=== PATIENT | female | born 1975 | race Caucasian/White ===

== ENCOUNTER 2017-09-02 17:58 | Emergency (ER) | payer MEDICAID, SELFPAY ==
[2017-09-02 18:02] VITALS: BP 157/124; PULSE 107; RESP 20; TEMP 37.3; O2SAT 98; BMI 18.4
[2017-09-02 18:37] VITALS: BP 142/80; PULSE 96; RESP 16; O2SAT 97
[2017-09-02] MEDS: Acetaminophen 500 MG Tablet 1000 MG PO (19:03)
[2017-09-02 20:03] LABS: Absolute Lymphocyte Count 3.22 X10^3/ul (0.83-4.51); Basophil# 0.01 X10^3/uL; Basophil% 0.1 % (0-1); Eosinophil# 0.13 X10^3/uL; Eosinophils% 1.3 % (0-5); Hematocrit 45.4 % (37-47); Hemoglobin 15.3 g/dl (12.0-15.0); Lymphocyte # 3.22 X10^3/ul (4.0); Lymphocyte % 32.9 % (19-41); Mean Corp Hgb Conc 33.7 g/gl (32-36); Mean Corpuscular Hgb 30.1 pg (27.0-32.0); Mean Corpuscular Volume 89.2 fL (81-99); Monocyte# 0.47 X10^3/uL; Monocyte% 4.8 % (0-10); Neutrophil # 5.95 X10^3/uL (2.7-7.7); Neutrophil % 60.7 % (47-70); POSITIVE COUNT NO; POSITIVE DIFFERENTIAL NO; POSITIVE MORPHOLOGY NO; Platelet Count 203 K/mm3 (150-450); RBC Distribution Width CV 13.3 % (11.6-14.6); RBC Distribution Width SD 43.3 fl (35.1-43.9); Red Blood Count 5.09 M/mm3 (4.2-5.4); White Blood Count 9.8 K/mm3 (4.4-11.0)
[2017-09-02 20:12] LABS: Anion Gap 6 (5-15); BUN 17 mg/dL (7-18); BUN/Creat Ratio 20.8 RATIO (10-20); Chloride 110 mmol/L (98-107); Creatinine, Serum 0.82 mg/dL (0.55-1.02); EST Glomerular Filtration Rate 81 mL/min (>60); Est Glom Filt Rate - Afr Amer 99 mL/min (>60); Estimated Creatinine Clearance 68.71 ml/min; Glucose 73 mg/dL (74-106); Potassium 3.4 mmol/L (3.5-5.1); Sodium Level 140 mmol/L (136-145)
[2017-09-02 20:16] LABS: Bacteria 0 SEEN /hpf (None Seen); Mucous, Urine 0 SEEN /hpf (<or=2+)
[2017-09-02 20:36] LABS: Color, Urine Yellow (Yellow); Glucose, Dipstick Normal (Normal); Ketone-Dipstick Negative (Negative); Leukocyte Esterase-Dipstick 25 /ul (Negative); Nitrite-Dipstick Negative (Negative); Occult Blood-Urine 10 /ul (Negative); Protein-Dipstick Negative (Negative); Specific Gravity, Urine 1.015 (1.002-1.030); Urine Bilirubin Dipstick Negative (Negative); Urine Clarity Sl. Cloudy (Clear); Urine Urobilinogen Normal (Normal)
[2017-09-02 21:02] LABS: Internal QC Validated? YES +Cl - CLEAR BKGD; Pregnancy, Urine Negative Negative
[2017-09-02 21:05] LABS: Red Blood Cells-Urine 0-5 SEEN /hpf (0-5); Squamous Epithelial Cells - UA 0-5 SEEN /hpf (5-10); White Blood Cells 0-5 SEEN /hpf (0-5)
--- NOTE | 2017-09-02 21:38 | ED.DCSUM_ITS ---
- ER Visit Summary Date of Service: 09/02/17 Chief Complaint: 42-year-old female who was diagnosed with cervical cancer 15 years ago presents with pelvic pain and fever after a punch biopsy 9 days ago. She states that she was diagnosed a long time ago with cervical cancer but did not follow-up because she was using IV heroin and other drugs heavily at the time. She states that she has been addicted to heroin for essentially the past 15 years and did not want to follow-up. She has now been clean for the past 6- 7 months and has been going to a Suboxone clinic. She is currently on Suboxone and she has been getting her life in order and seeking medical treatment for her cervical cancer. She has had a total of 3 biopsies over the past month, an MRI, and she is scheduled for colonoscopy and cystoscopy to evaluate for spread of the cancer. She has been preparing for chemotherapy and possibly radiation. She said that she has had pain in her pelvic region ever since her last punch biopsy. She was initially spotting but this has resolved. She denies any localized pain. No back pain or urinary symptoms. She believes that she had a fever at home today as well but she was unable to check it. She has no cough, respiratory complaints, or other symptoms. She states that she has not used IV heroin in the past 6 months and she denies any chest pain, night sweats, or weight loss. Physical Examination: Vitals are within normal limits. She is not in distress. Neck is supple. Heart tones are regular and without murmur. Lungs are clear bilaterally. Abdomen is soft and nontender. No flank tenderness. No rash anywhere. No sign of skin infection anywhere. No splinter hemorrhages or other signs of endocarditis. Test Results: BC and BMP are normal here except for glucose of 79. She was able to eat here without difficulty. She has no abdominal pain, just suprapubic pressure. Urinalysis is unremarkable was sent for culture. She has no splinter hemorrhages, heart murmur, or other signs of endocarditis to explain her fever and she has not used for at least 6 months from what she tells me. I think endocarditis is unlikely. Emergency Department Course and Treatment: I was set up to perform a pelvic examination to evaluate her punch biopsy site but her family came to me in the hallway and said that she is going to elope from the emergency department and does not want to wait. I went back in and spoke with her and told her that her laboratory studies are unremarkable so far but that we should evaluate her biopsy site. She states that she is unable to wait because she needs to get home to smoke a cigarette. She is getting anxiety from waiting here she tells me. She did allow me to repeat an abdominal examination and her abdomen is still soft and nontender. She does not want a pelvic examination. She states that she already called her [employer] doctor and she is seeing her on Tuesday morning. I think this is reasonable given her well appearance. She will return if she is any worse over the weekend. Asked for a prescription for Flexeril since she is unable to take opiates and NSAIDs. She states that this has worked well for her in the past. Treatment Plan: See her [employer] doctor on Tuesday Disposition: Home stable condition Impression: Initial encounter pelvic pain after punch biopsy, febrile illness This note was generated with [employer] dictation software. It may contain incorrect words, spelling, and punctuation that were not noted in review of the chart prior to signing ED Disposition - Plan for ED Patient: Chief Complaint: Other, Pain/Inj Diagnosis: Pelvic pain Instructions: ED Pelvic Pain [facility] Prescriptions: Cyclobenzaprine [Flexeril] 10 mg PO TID PRN #20 tablet PRN Reason: Muscle Spasm Referrals: Shilpa Valiente MD [Primary Care Provider] - As soon as possible
[2017-09-02 22:01] VITALS: BP 112/94; PULSE 87; RESP 16; O2SAT 98
== END 2017-09-02 22:02 | disposition home or self-care (01) ==
PROVIDERS: Emergency Provider Emergency Medicine; Family Provider Obstetrics & Gynecology Gynecology; PCP Obstetrics & Gynecology Gynecology
DX: R10.2 Pelvic and perineal pain (principal); R50.9 Fever, unspecified; Z72.0 Tobacco use; Z85.41 Personal history of malignant neoplasm of cervix uteri
CPT/HCPCS: 36415; 80048; 81001; 81025; 85025; 87086; 99281; A4216

== ENCOUNTER 2018-02-14 19:37 | Emergency (ER) | payer MEDICAID, SELFPAY ==
[2018-02-14 19:37] VITALS: BP 136/78; PULSE 96; RESP 16; TEMP 36.6; O2SAT 99; BMI 22.4
--- NOTE | 2018-02-14 19:42 | RAD_ITS ---
STUDY: X-RAY - RIGHT SHOULDER REASON FOR EXAM: Female, 42 years old. Pain TECHNIQUE: 4 view(s) of the shoulder. COMPARISON: None. FINDINGS: Normal glenohumeral articulation. There is hypertrophic osteoarthrosis of the acromioclavicular joint with inferior osseous spur formation. Normal acromion. Normal humeral head and visualized proximal humerus. The soft tissue structures are unremarkable. There is no demonstrated fracture. Normal visualized pulmonary apex. RAD/Shoulder min 2 Views IMPRESSION: No fracture. Acromioclavicular spurring. Electronically Signed: Mack Roberto MD at 20:17 EDT , Service support ,
--- NOTE | 2018-02-14 20:33 | ED.DCSUM_ITS ---
- ER Visit Summary Date of Service: 02/14/18 Chief Complaint: Right shoulder pain History of Present Illness: The patient is a 42 F with right shoulder pain for the past 3 weeks. She denies known injury, but does states she has been lifting her grandchildren. She is right-hand dominant. Physical Examination: Vital signs unremarkable. Patient sitting upright in bed no acute distress. Head neck examination unremarkable. Heart is regular rate and rhythm. Lung sounds clear. Abdomen is soft nontender. Right upper extremity examination does reveal tenderness along the anterior right shoulder over the lateral pectoralis muscles in the AC joint. She has decreased range of motion secondary to pain. There is normal sensation with strong distal pulses. Test Results: Right shoulder x-rays were obtained per nursing protocol. No evidence of fracture or dislocation. AC spurring is noted. Emergency Department Course and Treatment: Patient is given Naprosyn in a sling. She was instructed to come out of the sling 3 times a day to exercise her right shoulder to keep her range of motion. She is referred to orthopedics for follow-up if not improving. Treatment Plan: [] Disposition: Discharge Impression: Shoulder sprain This note was generated with [employer] dictation software. It may contain incorrect words, spelling, and punctuation that were not noted in review of the chart prior to signing ED Disposition - Plan for ED Patient: Disposition: Home or Assisted Living Chief Complaint: Upper Extremity Injury Instructions: ED Sprain Shoulder Prescriptions: Naproxen [Naprosyn] 500 mg PO BID PRN PRN #20 tablet PRN Reason: Pain Referrals: Romario Perez MD [STAFF PHYSICIAN] - As Needed
[2018-02-14 20:53] VITALS: BP 117/96; PULSE 87; RESP 16; O2SAT 96
[2018-02-14] MEDS: Naproxen 500 MG Tablet PO (20:57)
== END 2018-02-14 21:02 | disposition home or self-care (01) ==
LOC: ED 20:37
PROVIDERS: Emergency Provider Emergency Medicine
DX: S43.401A Unspecified sprain of right shoulder joint, initial encounter (principal); X58.XXXA Exposure to other specified factors, initial encounter; Y93.89 Activity, other specified; Y92.89 Other specified places as the place of occurrence of the external cause; Y99.9 Unspecified external cause status; Z72.0 Tobacco use; Z85.41 Personal history of malignant neoplasm of cervix uteri
CPT/HCPCS: 73030; 99283

== ENCOUNTER 2018-10-21 16:04 | Emergency (ER) | payer MEDICAID, SELFPAY ==
[2018-10-21 16:05] VITALS: BP 128/90; PULSE 102; RESP 18; TEMP 36.3; O2SAT 100; BMI 21.9
--- NOTE | 2018-10-21 16:34 | EKG12_ITS ---
Test Reason : ISELA BLANCHARD Confirmed By:TRISH SPARROW MD
[2018-10-21 16:48] VITALS: O2SAT 100
--- NOTE | 2018-10-21 17:52 | ED.VIS.GEN ---
History of Present Illness <AbelStef - Last Filed: 10/21/18 19:21> Informant: Patient Onset: Today Context: Sudden Onset Timing: Continuous Quality: sharp Location: left anterior chest radiating to back/jaw Current Severity: Moderate Maximum Severity: Severe Worsened by: nothing Relieved by: nothing Associated Symptoms: back pain, nausea Narrative: 43-year-old female with a past medical history of hyperlipidemia and heroin abuse presents to the emergency department with left sided chest pain. This began suddenly 1 hour prior to arrival. Patient was at the grocery store holding her niece and then had a sudden onset of pain. It radiates to her back and on the right side of her jaw. She is not lightheaded or dizzy denies shortness of breath or diaphoresis but is nauseated. No vomiting. No numbness or tingling. No headache. No neck pain. Denies history of similar symptoms. Denies any recent drug abuse. Denies abdominal pain. Denies any recent travel or surgery, history of DVT or PE, or use of oral control pills. Denies leg pain or swelling. She is a daily smoker. Family history of heart disease at a young age, less than 50. Prior similar symptoms: Yes Recent Illness/Hospitalization: No <Grzegorz Gonsalez - Last Filed: 10/22/18 10:23> Chief Complaint: Back Past Medical History <AbelStef - Last Filed: 10/21/18 19:21> Prior records reviewed: Yes Past Medical History: - - IVDA, hyperlipidemia Surgical History: no surgical history Smoking Status: Current every day smoker - Family History Maternal Family History: Reports: No pertinent history <Grzegorz Gonsalez - Last Filed: 10/22/18 10:23> - Allergies and Home Meds Allergies/Adverse Reactions: Allergies Penicillins Allergy (Verified 02/14/18 19:39) Swelling rofecoxib [From Vioxx] Allergy (Verified 02/14/18 19:39) Rash Primary Care Physician: Ifeanyi Vasquez MD [Primary Care Provider] - As soon as possible Review of Systems All systems negative except as indicated General: Denies: Chills, Fever Cardiovascular: Reports: Chest pain Respiratory: Denies: Dyspnea Gastrointestinal: Reports: Nausea. Denies: Abdominal pain, Vomiting <Grzegorz Gonsalez - Last Filed: 10/22/18 10:23> Physical Exam Vital Signs/Narrative: Vital Signs Temp Pulse Resp BP Pulse Ox 10/21/18 18:43 72 12 116/82 H 96 10/21/18 16:48 100 10/21/18 16:05 97.4 F L 102 H 18 128/90 H 100 <Setf Roman - Last Filed: 10/21/18 19:21> Vital Signs/Narrative: Vital Signs Temp Pulse Resp BP Pulse Ox 10/21/18 16:48 100 10/21/18 16:05 97.4 F L 102 H 18 128/90 H 100 General: Well nourished, Well developed, No Acute Distress Head: Normocephalic, Atraumatic Eyes: Perrl, EOMI ENT: Moist mucous membranes Neck: Supple, Nontender Cardiovascular: Regular rate, Regular rhythm, No murmurs Respiratory: No distress, CTA bilaterally, Chest nontender Abdomen: Soft, Nontender, Nondistended, Normal bowel sounds, No masses Back: Nontender, Normal Inspection Extremities: Nontender, No edema. Negative for: Calf Tenderness Skin: Normal color, No rash Neurological: Alert, Oriented x3 Psychological: Normal affect <Grzegorz Gonsalez - Last Filed: 10/22/18 10:23> ED Disposition <Stef Roman - Last Filed: 10/21/18 19:21> <Grzegorz Gonsalez - Last Filed: 10/22/18 10:23> - Plan for ED Patient: Disposition: Against Medical Advice Diagnosis: Chest pain Instructions: ED Chest Pain Atypical Unkn Cause Referrals: Ifeanyi Vasquez MD [Primary Care Provider] - As soon as possible Additional Instructions: Take 1 baby aspirin per day. Follow-up with your primary care physician soon as possible you need further evaluation in this chest pain. All your tests were normal today but I am concerned he can still be possibly underlying cardiac disease. If you feel worse or change your mind please return the emergency department to be admitted. Follow-up with your primary care physician to set up outpatient stress testing and possibly an echocardiogram to evaluate your heart valves.
--- NOTE | 2018-10-21 18:12 | RAD_ITS ---
STUDY: X-RAY CHEST REASON FOR EXAM: Female, 43 years old. Chest pain, squeezing sensation TECHNIQUE: PA and lateral views of the chest. COMPARISON: None. FINDINGS: The lungs are clear and expanded. There is pleural fibrotic thickening of the pulmonary lung apices. Normal size heart. Normal mediastinum and melania. Normal visualized pulmonary arteries. Normal visualized aortic arch and descending thoracic aorta. Normal visualized thoracic spine. Normal visualized ribs, clavicles, and shoulders. There is no demonstrated abnormality of the visualized soft tissue structures of the upper abdomen. RAD/Chest PA and Lateral IMPRESSION: No acute cardiopulmonary process. Electronically Signed: Luis Armando Lee MD at 18:34 EDT , Service support ,
[2018-10-21 18:32] LABS: Absolute Lymphocyte Count 2.07 X10^3/ul (0.83-4.51); Absolute Neutrophil Count 4.6 X10^3/uL (2.0-7.7); Basophil# 0.02 X10^3/uL; Basophil% 0.3 % (0-1); Eosinophil# 0.22 X10^3/uL; Hematocrit 39.4 % (37-47); Hemoglobin 13.1 g/dl (12.0-15.0); Lymphocyte # 2.07 X10^3/ul (4.0); Lymphocyte % 28.3 % (19-41); Mean Corp Hgb Conc 33.2 g/gl (32-36); Mean Corpuscular Hgb 29.9 pg (27.0-32.0); Mean Platelet Vol. 9.9 fl (6.2-12.0); Monocyte# 0.39 X10^3/uL; Monocyte% 5.3 % (0-10); Neutrophil # 4.61 X10^3/uL (2.7-7.7); Platelet Count 261 K/mm3 (150-450); RBC Distribution Width CV 13.3 % (11.6-14.6); Red Blood Count 4.38 M/mm3 (4.2-5.4); White Blood Count 7.3 K/mm3 (4.4-11.0)
[2018-10-21 18:42] LABS: D-Dimer Quantitative (DVT/PE) 0.31 FEU/ug/m (0.27-0.49); POSITIVE COUNT NO; POSITIVE DIFFERENTIAL NO; POSITIVE MORPHOLOGY NO
[2018-10-21 18:43] VITALS: BP 116/82; PULSE 72; RESP 12; O2SAT 96
[2018-10-21 18:49] LABS: Anion Gap 4 (5-15); BUN 13 mg/dL (7-18); BUN/Creat Ratio 18.6 RATIO (10-20); Calcium,Total 8.6 mg/dL (8.5-10.1); Chloride 106 mmol/L (98-107); EST Glomerular Filtration Rate 97 mL/min (>60); Est Glom Filt Rate - Afr Amer 117 mL/min (>60); Estimated Creatinine Clearance 89.48 ml/min; Glucose 105 mg/dL (74-106); Potassium 4.1 mmol/L (3.5-5.1); Sodium Level 139 mmol/L (136-145)
--- NOTE | 2018-10-21 19:18 | HP.PCM_ITS ---
History of Present Illness The patient is a 43 year old F [] Past Medical History Past Medical History (Chronic Problems): Chronic Problems Cervical cancer (Chronic) Tobacco dependence (Chronic) Heroin dependence (Chronic) Allergies Penicillins Allergy (Verified 02/14/18 19:39) Swelling rofecoxib [From Vioxx] Allergy (Verified 02/14/18 19:39) Rash Home Medications: Ambulatory Orders Medication Instructions Recorded Atorvastatin Calcium [Lipitor] 40 mg PO DAILY 09/02/17 Buprenorphine HCl/Naloxone HCl 4 each PO BID 09/02/17 [Suboxone 8 mg-2 mg Sl Film] Mirtazapine 30 mg PO DAILY 10/21/18 Surgical History: no surgical history Smoking Status: Current every day smoker - *Family History Maternal History Items: No pertinent history - Physical Exam Vital Signs Temp Pulse Resp BP Pulse Ox 97.4 F L 72 12 116/82 H 96 10/21/18 16:05 10/21/18 18:43 10/21/18 18:43 10/21/18 18:43 10/21/18 18:43 Oxygen Delivery Method Room Air Weight: 58.1 kg Body Mass Index (BMI) 21.9 Laboratory Tests Past 24 Hrs 10/21/18 10/21/18 10/21/18 18:08 18:08 18:08 WBC 7.3 RBC 4.38 Hgb 13.1 Hct 39.4 MCV 90.0 MCH 29.9 MCHC 33.2 RDW 13.3 RDW Differential 44.0 H Plt Count 261 MPV 9.9 Immature Gran % (Auto) 0.100 Neut % (Auto) 63.0 Lymph % (Auto) 28.3 Forrest % (Auto) 5.3 Eos % (Auto) 3.0 Baso % (Auto) 0.3 Absolute Neuts (auto) 4.6 Absolute Lymphs (auto) 2.07 Total Counted Not Reportable D-Dimer Quant (PE/DVT) 0.31 Sodium 139 Potassium 4.1 Chloride 106 Carbon Dioxide 29.0 Anion Gap 4 L BUN 13 Creatinine 0.70 Estim Creat Clear Calc 89.48 Est GFR (MDRD) Af Amer 117 Est GFR (MDRD) Non-Af 97 BUN/Creatinine Ratio 18.6 Glucose 105 Calcium 8.6 Troponin I < 0.015 Assessment/Plan All Active Problems Acute opioid withdrawal (Acute)
--- NOTE | 2018-10-21 19:42 | ED.VISSUMM ---
- ER Visit Summary Date of Service: 10/21/18 Chief Complaint: [] History of Present Illness: The patient is a 43 F [] Physical Examination: [] Test Results: [] Emergency Department Course and Treatment: Patient's cardiac work-up was negative including a normal CBC and BMP. Negative troponin. Negative d-dimer. Chest x-ray showed normal cardiac silhouette mediastinum. No signs of dissection. EKG was a sinus rhythm with no acute signs of UT or ischemia. Repeat exam patient was feeling better. I discussed with her being admitted. Initially she seemed comfortable with that plan. My concern was her history and her brothers history of having cardiac stents in his early 40s. Also she has a history of IV drug abuse clinically I do not think this is endocarditis but that something could be evaluated also while in the hospital. Treatment Plan: The hospitalist came down evaluate the patient. Explained to her that stress test would not be until Tuesday but he was more than willing to admit her. She states that she has animals at home and could not stay that long. She is refusing admission. And will sign out AMA. Disposition: Planned admission but patient refused and signing out AMA. I specifically discussed this with the patient myself. She knows my concerns. Knows to return if she feels worse or wants to be admitted. She understands the risk of a heart attack, sudden cardiac or chronic vegetative state. Impression: Acute chest pain uncertain etiology Signing out AGAINST MEDICAL ADVICE This note was generated with [employer] dictation software. It may contain incorrect words, spelling, and punctuation that were not noted in review of the chart prior to signing ED Disposition - Plan for ED Patient: Referrals: Ifeanyi Vasquez MD [Primary Care Provider] -
--- NOTE | 2018-10-21 19:45 | ED.DCSUM_ITS ---
- ER Visit Summary Date of Service: 10/21/18 Chief Complaint: [] History of Present Illness: The patient is a 43 F [] Physical Examination: [] Test Results: [] Emergency Department Course and Treatment: Patient's cardiac work-up was negative including a normal CBC and BMP. Negative troponin. Negative d-dimer. Chest x-ray showed normal cardiac silhouette mediastinum. No signs of dissection. EKG was a sinus rhythm with no acute signs of WI or ischemia. Repeat exam patient was feeling better. I discussed with her being admitted. Initially she seemed comfortable with that plan. My concern was her history and her brothers history of having cardiac stents in his early 40s. Also she has a history of IV drug abuse clinically I do not think this is endocarditis but that something could be evaluated also while in the hospital. Treatment Plan: The hospitalist came down evaluate the patient. Explained to her that stress test would not be until Tuesday but he was more than willing to admit her. She states that she has animals at home and could not stay that long. She is refusing admission. And will sign out AMA. Disposition: Planned admission but patient refused and signing out AMA. I specifically discussed this with the patient myself. She knows my concerns. Knows to return if she feels worse or wants to be admitted. She understands the risk of a heart attack, sudden cardiac or chronic vegetative state. Impression: Acute chest pain uncertain etiology Signing out AGAINST MEDICAL ADVICE This note was generated with [employer] dictation software. It may contain incorrect words, spelling, and punctuation that were not noted in review of the chart prior to signing ED Disposition - Plan for ED Patient: Referrals: Ifeanyi Vasquez MD [Primary Care Provider] -
--- NOTE | 2018-10-21 19:46 | ED.DEP ---
ED Disposition - Plan for ED Patient: Disposition: Home or Assisted Living Instructions: ED Chest Pain Atypical Unkn Cause Referrals: Ifeanyi Vasquez MD [Primary Care Provider] - As soon as possible Additional Instructions: Take 1 baby aspirin per day. Follow-up with your primary care physician soon as possible you need further evaluation in this chest pain. All your tests were normal today but I am concerned he can still be possibly underlying cardiac disease. If you feel worse or change your mind please return the emergency department to be admitted. Follow-up with your primary care physician to set up outpatient stress testing and possibly an echocardiogram to evaluate your heart valves.
[2018-10-21 19:59] VITALS: BP 121/87; PULSE 78; RESP 16; O2SAT 96
== END 2018-10-21 20:00 | disposition left against medical advice (07) ==
PROVIDERS: Physician Assistant Medical; Emergency Provider Emergency Medicine; Family Provider Internal Medicine; PCP Internal Medicine
DX: R07.9 Chest pain, unspecified (principal); M54.9 Dorsalgia, unspecified; R11.0 Nausea; E78.5 Hyperlipidemia, unspecified; Z88.0 Allergy status to penicillin; F17.200 Nicotine dependence, unspecified, uncomplicated; Z82.49 Family history of ischemic heart disease and other diseases of the circulatory system
CPT/HCPCS: 71046; 80048; 84484; 85025; 85379; 93005; 99284; A4216

== ENCOUNTER 2019-11-19 21:32 | Emergency (ER) | payer MEDICAID, SELFPAY ==
[2019-11-19 21:33] VITALS: BP 149/61; PULSE 77; RESP 16; TEMP 37.4; O2SAT 96; BMI 23.5
--- NOTE | 2019-11-19 21:48 | ED.VIS.GEN ---
History of Present Illness Chief Complaint: Lower Extremity Injury Informant: Patient Narrative: 44-year-old female presents with right knee pain. She states he twisted it and fell yesterday. She states that she also wore an Quinn wrap and went to work all day on it and it felt fine. Today it hurts a little bit worse. Her sister told her to come to the ER because she could have the L tear. Past Medical History - Allergies and Home Meds Allergies/Adverse Reactions: Allergies Penicillins Allergy (Verified 11/19/19 21:36) Swelling rofecoxib [From Vioxx] Allergy (Verified 11/19/19 21:36) Rash Primary Care Physician: Ifeanyi Vasquez MD [Primary Care Provider] - Surgical History: no surgical history Lives: Spouse/ Significant Other, With Family Smoking Status: Current every day smoker - Family History Maternal Family History: Reports: No pertinent history Review of Systems General: Denies: Chills, Fever, Sweats Eyes: Denies: Visual changes - bilaterally, Diplopia ENT: Denies: Rhinorrhea, Sore throat Cardiovascular: Denies: Chest pain, Palpitations Respiratory: Denies: Dyspnea, Cough, Dyspnea on exertion Gastrointestinal: Denies: Abdominal pain, Nausea, Vomiting, Diarrhea, Melena, Hematochezia Genitourinary: Denies: Dysuria, Hematuria, Frequency, -, - Musculoskeletal: Reports: Extremity Pain - Right knee pain Skin: Denies: Rash Neurological: Denies: Headache Psych: Denies: Depression Physical Exam Vital Signs/Narrative: Vital Signs Temp Pulse Resp BP Pulse Ox 11/19/19 21:33 99.3 F H 77 16 149/61 H 96 General: Well nourished, Well developed, No Acute Distress Head: Normocephalic, Atraumatic Eyes: Perrl, EOMI ENT: Moist mucous membranes Cardiovascular: Regular rate, Regular rhythm Respiratory: No distress, CTA bilaterally Abdomen: Soft, Nontender, Nondistended Extremities: - - Tenderness to palpation to the lateral aspect of the right knee. There is no deformities. There is no bruising. No swelling. No patellar tenderness. Extensor mechanism is intact. Not appear to be any ligament laxity. Skin: Normal color, No rash Neurological: Alert, Oriented x3 Diagnostic/Tx/Re-eval - Medical Decision Making She was seen and evaluated for right knee pain. She states she twisted and fell on it. On exam she has some tenderness on the lateral joint line but other than that there is no swelling, bruising, deformity, ligament laxity. I counseled her that I could get an x-ray make sure she does not have any bony injury but she stated that it is not broken and she does not want an x-ray. She stated that she would just use an Quinn wrap and follow-up outpatient if it does not improve. Patient was given a new Quinn wrap. She declined crutches. She ambulated out of the ED with a stable gait. Impression: 1. Fall 2. Right knee strain 3. Right knee contusion ED Disposition - Plan for ED Patient: Disposition: Home or Assisted Living Diagnosis: Knee strain Instructions: ED Knee Pain [facility] Referrals: Ifeanyi Vasquez MD [Primary Care Provider] -
[2019-11-19 22:05] VITALS: BP 149/61; PULSE 77; RESP 16
== END 2019-11-19 22:08 | disposition home or self-care (01) ==
LOC: ED 22:01
PROVIDERS: Emergency Provider Student in an Organized Health Care Education/Training Program; PCP Internal Medicine
DX: S80.01XA Contusion of right knee, initial encounter (principal); S86.911A Strain of unspecified muscle(s) and tendon(s) at lower leg level, right leg, initial encounter; X50.1XXA Overexertion from prolonged static or awkward postures, initial encounter; Y93.9 Activity, unspecified; Y92.89 Other specified places as the place of occurrence of the external cause; Y99.9 Unspecified external cause status; F17.200 Nicotine dependence, unspecified, uncomplicated; Z88.0 Allergy status to penicillin
CPT/HCPCS: 99282

== ENCOUNTER 2021-06-29 19:42 | Emergency (ER) | payer MEDICAID, SELFPAY ==
[2021-06-29 19:45] VITALS: BP 130/78; PULSE 88; RESP 16; TEMP 37.2; O2SAT 98; BMI 20.9
--- NOTE | 2021-06-29 19:49 | EKG12_ITS ---
Test Reason : CP Blood Pressure : / mmHG Vent. Rate : 091 BPM Atrial Rate : 091 BPM P-R Int : 150 ms QRS Dur : 086 ms QT Int : 376 ms P-R-T Axes : 080 056 038 degrees QTc Int : 462 ms Normal sinus rhythm Nonspecific ST and T wave abnormality Abnormal ECG Confirmed by FELY TRIANA, LYDIA ([id number]), news assignment editor RANDALL CASTRO ([id number]) on 07/01/2021 8:11:38 AM Referred By: TOMMY Confirmed By:LYDIA GEIGER MD
--- NOTE | 2021-06-29 19:50 | ED.VIS.CHEST ---
HPI History of Present Illness Chief Complaint: Chest Pain Informant: patient Onset/Context/Timing Onset: Hours (Onset at 10 AM at rest) Activity at onset: sudden Timing: Continuous Quality: Positive for Pressure Location: Substernal Current Severity: Mild Maximum Severity: Moderate Worsened By: Nothing Relieved By: Nothing Associated Symptoms: Positive for Diaphoresis and Dyspnea; Negative for Nausea, Vomiting, Cough, Fever, Lightheadedness, Acid Reflux and Palpitations Narrative Narrative: Patient is a 46-year-old woman who presents from Dr. Vasquez office because of chest pressure that started at 10 AM. This occurred at rest. Radiates to her left side, neck, trapezius and shoulder region. The pain has been constant since onset. No alleviating, precipitating or exacerbating factors. She did report diaphoresis and shortness of breath with onset. She was seen Dr. Vasquez today for preoperative clearance for colonoscopy. She denies history of reflux, hiatal hernia or peptic ulcer disease. Denies black or maroon-colored stool. She denies history of VTE. She denies leg pain, swelling discoloration. Prior Similar Symptoms: No Recent Illness/Hospitalization: No CVD Risk Factors: Positive for Hypercholesterolemia, Family History 1' </=55 and Smoking; Negative for Hypertension and Diabetes PE Risk Factors: Negative for Recent Travel/Surgery, Recent Immobilization, Prior DVT or PE and OCP + Smoking + >/=35 TAD Risk Factors: Negative for Marfan's Syndrome, Hypertension and Family History [facility] Medical History Cervical cancer Home Medications atorvastatin 40 mg PO DAILY 09/02/17 [History Last Taken Unknown] buprenorphine-naloxone [Suboxone 8 mg-2 mg Sl Film] 4 ea PO BID 09/02/17 [History Last Taken Unknown] mirtazapine 22.5 mg PO QHS 10/21/18 [History Last Taken Unknown] Allergy/AdvReac Type Severity Reaction Status Date / Time Penicillins Allergy Swelling Verified 06/29/21 19:43 rofecoxib [From Vioxx] Allergy Rash Verified 06/29/21 19:43 Family History (Updated 06/29/21 @ 19:[address] Jose Arreola MD) Brother CAD (coronary artery disease) Father CAD (coronary artery disease) Surgical History no surgical history Social History (Updated 06/29/21 @ 19:[address] Jose Arreola MD) household members: spouse Smoking Status: Current every day smoker tobacco type: cigarettes substance use type: does not use ROS ROS ED Constitutional Constitutional ED: Denies chills, fever(s), subjective, sweats or weight loss Eyes Eyes: Denies blurry vision, change in vision or diplopia ENT ENT ED: Denies ear pain, rhinorrhea or sore throat Cardiovascular Cardiovascular: Reports as per HPI; Denies orthopnea or paroxysmal nocturnal dyspnea Respiratory/Chest Respiratory/Chest: Reports dyspnea; Denies cough, dyspnea on exertion, orthopnea, paroxysmal nocturnal dyspnea or sputum Gastrointestinal Gastrointestinal: Denies abdominal pain, constipation, diarrhea, nausea or vomiting Genitourinary Genitourinary ED: Denies dysuria, hematuria or urinary frequency Musculoskeletal Musculoskeletal: Reports neck pain; Denies arthralgias, back pain or myalgias Integumentary Denies rash Neurologic Neurologic: Denies headache(s) or weakness Endocrine Endocrinology: Denies polydipsia, polyphagia or polyuria EXAM Physical Exam Const Vital Signs: 06/29/21 19:45 06/29/21 19:51 06/29/21 21:46 Temperature 98.9 F Temperature Source Temporal Pulse Rate 88 64 Respiratory Rate 16 15 Respiratory Effort Normal Respiratory Pattern Normal Blood Pressure 130/78 H 131/81 H Blood Pressure Mean 95 97 Pulse Ox 98 100 96 Oxygen Delivery Method Room Air Room Air Room Air Positive well nourished and well developed General Appearance ED: well developed and NAD; Negative for pallor HEENT Reports TM's clear and moist mucous membranes HEENT Narrative: Nares patent. Ears normal. normocephalic and atraumatic Tympanic Membrane ED: Yes TM's clear Eyes PERRL and EOMs intact bilaterally General Eye ED: Negative for pale conjunctiva or scleral icterus Neck no lymphadenopathy, supple and no JVD Resp normal respiratory effort and clear to auscultation bilaterally Effort and Inspection: respiratory distress Cardio regular rate, regular rhythm, S1 normal heart sound and S2 normal heart sound GI normal to inspection, nondistended, normoactive bowel sounds, soft to palpation, non-tender and non-distended Back/Spine no CVA tenderness; Negative for no thoracic nor lumbar tenderness Cervical Spine: Negative for cervical spine tenderness Extremity normal to inspection Extremity Narrative: There is no asymmetry, swelling, discoloration, leg vein distention, palpable cords or tenderness along the distribution of the deep venous system. General Extremety ED: Negative for edema or tenderness General Extremity: Negative for edema Neuro oriented x3 and CN's II-XII intact bilaterally Sensorium / Orientation: awake and alert Psych mental status grossly normal Skin no rashes or lesions noted and no wounds General Skin Exam: Negative for jaundice or pallor Heart Score History: Slightly/Non-Suspicious ECG: Normal Age: >45 - <65 years Risk Factors: 1 or 2 Risk Factors Troponin: </= Normal Limit Score: 2 MDM MDM MDM Narrative Medical decision making narrative: Patient presents from physician's office because of chest pressure that started 10 AM. Need to rule out cardiac versus noncardiac etiology. EKG, chest x-ray and appropriate labs were ordered. Patient was treated with baby aspirin. Lab Data Attestation: I reviewed the patient's lab results. Lab results narrative: Since the first troponin and second troponin are both less than 8 and delta is less than 7 patient is a candidate for discharge since her negative predictive value is 100%. Patient's been informed that the cause of her chest pain is not cardiac. Will need work-up as an outpatient for possible GI source. Labs: Laboratory Results - last 24 hr 06/29/21 06/29/21 06/29/21 20:00 20:00 21:50 WBC 8.6 RBC 4.52 Hgb 13.8 Hct 40.8 MCV 90.3 MCH 30.5 MCHC 33.8 RDW Std Deviation 41.7 RDW Coeff of Karolyn 12.5 Plt Count 230 MPV 9.9 Immature Gran % (Auto) 0.200 Neut % (Auto) 59.9 Lymph % (Auto) 31.4 [place] % (Auto) 5.5 Eos % (Auto) 2.6 Baso % (Auto) 0.4 Absolute Neuts (auto) 5.1 Absolute Lymphs (auto) 2.69 Nucleated RBC % 0 Sodium 138 Potassium 3.3 L Chloride 107 Carbon Dioxide 27.0 Anion Gap 4 L BUN 14 Creatinine 0.81 Estim Creat Clear Calc 71.79 Est GFR (MDRD) Af Amer 98 Est GFR (MDRD) Non-Af 81 BUN/Creatinine Ratio 17.3 Glucose 108 H Calcium 8.8 Troponin I High Sens 4 6 Radiography Chest X-Ray - ED: 1 View (Interpreted by me at 2026. Cardiac silhouette size normal. Lung parenchyma is normal. Perihilar regions normal. Osseous structures are normal.) Diagnostic Testing: Clinical Impression(s) from Imaging Studies Chest X-Ray 06/29/21 20:10 IMPRESSION: There are no acute findings. Electronically Signed: Chepe Cody MD at 20:39 EST , EKG Initial EKG: Attestation: I personally reviewed and interpreted this EKG as follows: Interpretation: Sinus Rhythm (Ventricular rate is 91. IA interval is 150. QRS duration 86 ms. QT duration 276 ms. [place]eyer is normal. Computer is reading ossific changes. In my opinion the EKG is normal) Discharge Plan Triage Chief Complaint: Chest Pain ED Provider: Jose Arreola Dx/Rx/DC Orders Clinical Impression: Chest pain Instructions: ED Chest Pain, Noncardiac, ED Chest Pain, Uncertain Cause Prescriptions: No Action atorvastatin 40 MG tablet 40 mg PO DAILY RF: 0 buprenorphine-naloxone [Suboxone] 1 EACH film 4 ea PO BID RF: 0 mirtazapine 30 MG tablet 22.5 mg PO QHS RF: 0 Primary Care Provider: Ifeanyi Vasquez Referrals: Ifeanyi Vasquez MD [Primary Care Provider] - 5-7 Days Disposition Disposition: Home, Self Care
[2021-06-29 19:51] VITALS: O2SAT 100
[2021-06-29] MEDS: Aspirin 81 MG TAB.CHEW 324 MG PO (20:06)
--- NOTE | 2021-06-29 20:10 | RAD_ITS ---
STUDY: X-RAY CHEST REASON FOR EXAM: Female, 46 years old. CHEST PAIN chest pain TECHNIQUE: XR Chest 1 View COMPARISON: 10/21/2018 FINDINGS: There is no demonstrated pleural abnormality. Normal size heart. Normal mediastinum and melania. Normal visualized pulmonary arteries. Normal visualized aortic arch and descending thoracic aorta. Normal visualized thoracic spine. Normal visualized ribs, clavicles, and shoulders. There is no demonstrated abnormality of the visualized soft tissue structures of the upper abdomen. RAD/Chest 1 View (Portable) IMPRESSION: There are no acute findings. Electronically Signed: Chepe Cody MD at 20:39 EST ,
[2021-06-29 20:13] LABS: Absolute Lymphocyte Count 2.69 X10^3/uL (0.83-4.51); Absolute Neutrophil Count 5.1 X10^3/uL (2.0-7.7); Basophil# 0.03 X10^3/uL; Basophil% 0.4 % (0-1); Eosinophil# 0.22 X10^3/uL; Eosinophils% 2.6 % (0-5); Hematocrit 40.8 % (37-47); Hemoglobin 13.8 g/dL (12.0-15.0); Lymphocyte # 2.69 X10^3/ul (0.83-4.51); Lymphocyte % 31.4 % (19-41); Mean Corp Hgb Conc 33.8 g/dL (32-36); Mean Corpuscular Hgb 30.5 pg (27.0-32.0); Mean Corpuscular Volume 90.3 fL (81-99); Mean Platelet Vol. 9.9 fl (6.2-12.0); Monocyte# 0.47 X10^3/uL; Monocyte% 5.5 % (0-10); NRBC Flagged by Analyzer 0 % (0-5); Neutrophil # 5.13 X10^3/uL (2.7-7.7); Neutrophil % 59.9 % (47-70); Platelet Count 230 K/mm3 (150-450); RBC Distribution Width CV 12.5 % (11.6-14.6); RBC Distribution Width SD 41.7 fl (35.1-43.9); Red Blood Count 4.52 M/mm3 (4.2-5.4); White Blood Count 8.6 K/mm3 (4.4-11.0)
[2021-06-29 20:38] LABS: BUN 14 mg/dL (7-18); Creatinine, Serum 0.81 mg/dL (0.55-1.02); Glucose 108 mg/dL (74-106)
[2021-06-29 20:39] LABS: Anion Gap 4 (5-15); BUN/Creat Ratio 17.3 RATIO (10-20); Calcium,Total 8.8 mg/dL (8.5-10.1); Chloride 107 mmol/L (98-107); EST Glomerular Filtration Rate 81 mL/min (>60); Est Glom Filt Rate - Afr Amer 98 mL/min (>60); Estimated Creatinine Clearance 71.79 ml/min; Potassium 3.3 mmol/L (3.5-5.1); Sodium Level 138 mmol/L (136-145); Troponin-I HS 4 pg/mL (3.0-54.0)
[2021-06-29 21:46] VITALS: BP 131/81; PULSE 64; RESP 15; O2SAT 96
[2021-06-29 22:28] LABS: Troponin-I HS 6 pg/mL (3.0-54.0)
[2021-06-29 23:04] VITALS: BP 121/84; PULSE 66; RESP 13; O2SAT 99
== END 2021-06-29 23:07 | disposition home or self-care (01) ==
PROVIDERS: Emergency Provider Emergency Medicine; PCP Internal Medicine; Visit Provider Emergency Medicine
DX: R07.9 Chest pain, unspecified (principal); R06.02 Shortness of breath; F17.210 Nicotine dependence, cigarettes, uncomplicated
CPT/HCPCS: 71045; 80048; 84484; 85025; 93005; 99285; A4216

== ENCOUNTER 2021-08-06 12:09 | Emergency (ER) | payer MEDICAID, SELFPAY ==
[2021-08-06 12:10] VITALS: BP 133/97; PULSE 93; RESP 18; TEMP 35.9; O2SAT 100; BMI 20.2
--- NOTE | 2021-08-06 12:15 | EKG12_ITS ---
Test Reason : Blood Pressure : / mmHG Vent. Rate : 086 BPM Atrial Rate : 086 BPM P-R Int : 176 ms QRS Dur : 084 ms QT Int : 406 ms P-R-T Axes : 080 050 027 degrees QTc Int : 485 ms Normal sinus rhythm Nonspecific ST abnormality Prolonged QT Abnormal ECG Confirmed by KYARA TRIANA, TRISH ([id number]), food editor RANDALL CASTRO ([id number]) on 08/07/2021 2:50:33 PM Referred By: NELDA Confirmed By:TRISH SPARROW MD
--- NOTE | 2021-08-06 12:26 | ED.VIS.CHEST ---
HPI History of Present Illness Chief Complaint: Chest Pain Informant: patient Onset/Context/Timing Onset: Today and Weeks Activity at onset: gradual Timing: Intermittent Quality: Positive for Aching Location: Substernal Current Severity: Gone Maximum Severity: Moderate Worsened By: Nothing Relieved By: Nothing Associated Symptoms: Positive for Diaphoresis and Lightheadedness; Negative for Nausea, Vomiting, Dyspnea, Cough, Fever, Acid Reflux and Palpitations Narrative Narrative: 46 old female past medical history of high cholesterol medications. Smokes about a pack a day and has for 30 years. States she has had midsternal chest pain for about a month. Squeezing sensation. At times goes to her neck and left shoulder. Usually lasts minutes. Sometimes she breaks out in a sweat with it. At times she gets lightheaded. It seems to be occurring more frequently. Not associated with exertion. May be mild shortness of breath. No nausea. She is discussed this with her primary care physician she has a pending stress test but that is not for another 6 weeks. Dad had congestive heart failure but no CABG or stents. Prior Similar Symptoms: Yes Recent Illness/Hospitalization: No CVD Risk Factors: Positive for Hypercholesterolemia and Smoking; Negative for Hypertension, Diabetes and Family History 1' </=55 PE Risk Factors: Negative for Recent Travel/Surgery, Recent Immobilization, Prior DVT or PE, Cancer and OCP + Smoking + >/=35 TAD Risk Factors: Negative for Marfan's Syndrome and Hypertension [facility] Medical History Cervical cancer Drug abuse High cholesterol Home Medications atorvastatin 40 mg PO DAILY 09/02/17 [History Last Taken Unknown] buprenorphine-naloxone [Suboxone 8 mg-2 mg Sl Film] 4 ea PO BID 09/02/17 [History Last Taken Unknown] mirtazapine 22.5 mg PO QHS 10/21/18 [History Last Taken Unknown] omeprazole 40 mg PO DAILY 08/06/21 [History Last Taken Unknown] ranitidine HCl [Zantac] 150 mg PO DAILY 08/06/21 [History Last Taken Unknown] Allergy/AdvReac Type Severity Reaction Status Date / Time Penicillins Allergy Swelling Verified 08/06/21 12:10 rofecoxib [From Vioxx] Allergy Rash Verified 08/06/21 12:10 Family History Brother CAD (coronary artery disease) Father CAD (coronary artery disease) Social History household members: spouse Smoking Status: Current every day smoker tobacco type: cigarettes substance use type: does not use ROS ROS ED ROS Narrative Chest pain. Review of Systems ROS Unobtainable: Denies due to encephalopathy Constitutional Constitutional ED: Denies fever(s) Eyes Eyes: Denies none ENT ENT ED: Denies ear pain Cardiovascular Cardiovascular: Reports as per HPI and chest pain; Denies palpitations or racing heartbeat Respiratory/Chest Respiratory/Chest: Reports dyspnea; Denies cough or sputum Gastrointestinal Gastrointestinal: Denies abdominal pain, diarrhea, nausea or vomiting Genitourinary Genitourinary ED: Denies dysuria or hematuria Musculoskeletal Musculoskeletal: Denies myalgias Integumentary Denies rash Neurologic Neurologic: Denies headache(s) Psychiatric Psychiatric: Denies depression Endocrine Endocrinology: Denies polyuria Hematologic/Lymphatic Hematologic/Lymphatic: Denies easy bruising Allergic/Immunologic Allergic/Immunologic ED: Denies urticaria EXAM Physical Exam Narrative Exam Narrative: 46-year-old female no acute distress. Vital signs stable afebrile. Pulse ox 100% on room air no signs of hypoxia. H EENT exam unremarkable. Neck nontender. Lungs clear to auscultation bilaterally. Heart regular rate and rhythm rate about 90 no murmur. Chest wall nontender. Abdomen soft nontender. Moving all 4 extremities. Calves nontender no edema no cords. Equal symmetrical radial pulses. Back nontender. Neurologically she is awake and alert. No focal neurologic exam. Currently pain-free. Exam benign. Const Vital Signs: 08/06/21 12:10 08/06/21 12:15 08/06/21 15:28 Temperature 96.7 F L Temperature Source Temporal Pulse Rate 93 66 Respiratory Rate 18 16 Respiratory Effort Normal Non-Labored Respiratory Pattern Normal Blood Pressure 133/97 H 116/78 Blood Pressure Mean 109 90 Pulse Ox 100 96 Oxygen Delivery Method Room Air Room Air 08/06/21 15:42 Temperature Temperature Source Pulse Rate Respiratory Rate 16 Respiratory Effort Respiratory Pattern Blood Pressure Blood Pressure Mean Pulse Ox Oxygen Delivery Method Positive well nourished and well developed; Negative for obese, cachectic, contractures or unkempt General Appearance ED: well developed and NAD; Negative for unkempt, cachectic, contractures or pallor Nutritional Appearance: Negative for cachectic or obese HEENT Reports moist mucous membranes normocephalic and atraumatic; Negative for trauma or tenderness Eyes PERRL and EOMs intact bilaterally General Eye ED: Negative for pale conjunctiva or scleral icterus Neck no lymphadenopathy, supple and no JVD General: Negative for tenderness Chest Wall inspection of chest normal and palpation of chest normal Resp normal respiratory effort and clear to auscultation bilaterally Effort and Inspection: respiratory distress Auscultation: Negative for rales, rhonchi or wheezes Cardio regular rhythm, S1 normal heart sound, S2 normal heart sound and no murmurs Rate: Negative for bradycardia or tachycardic Rhythm: Negative for abnormal rhythm GI normal to inspection, nondistended, normoactive bowel sounds, soft to palpation, non-tender, non-distended and no masses Back/Spine no CVA tenderness and no thoracic nor lumbar tenderness General Back: Negative for CVA tenderness Extremity normal to inspection General Extremety ED: Negative for edema, pulses abnormal or tenderness General Extremity: Negative for edema or pulses abnormal Neuro oriented x3 and CN's II-XII intact bilaterally Sensorium / Orientation: awake, alert, oriented to person and oriented to place; Negative for oriented to time Motor Exam: strength 5/5 throughout Psych mental status grossly normal Appearance: Negative for unkempt Attitude: No agitated Mood & Affect: Negative for depressed, anxious or tearful Skin no rashes or lesions noted and no wounds General Skin Exam: Negative for jaundice or pallor Heart Score History: Moderately Suspicious ECG: Significant ST-Depression Age: >45 - <65 years Risk Factors: 1 or 2 Risk Factors Troponin: </= Normal Limit Score: 5 MDM MDM MDM Narrative Medical decision making narrative: 46-year-old female with substernal chest squeezing pain. She has risk factors given her smoking history. Her high cholesterol. The only thing that would go against as this is not really exertional. But does seem to be coming more frequently and with increased intensity over the last month. She will undergo a cardiac work-up. Repeat exam unchanged. Discussed with patient at length. I did want to bring her to the hospital because she is having more frequent and increasing chest pain over the last month. She set up for an outpatient stress test but they cannot do it until sometime in September. She absolutely refuses to stay in the hospital. Said she gets very nervous and does not want to stay. She understands risks and benefits. This may not be cardiac but I think it needs to be home to help with the stress test. I spoke to cardiology and the vascular lab I cannot set it up myself due to the patient's insurance needs precertification. I spoke to the television servicer industrial controls technician and she will follow up with their office and they will try to get it scheduled as soon as possible. She knows to return if worse. Lab Data Attestation: I reviewed the patient's lab results. Lab results narrative: CBC unremarkable white count 9. H&H of 14 and 44. Platelets 209. Chemistries unremarkable gap of 4 normal BUN creatinine. Glucose 100. Troponin 6. Chest x-ray unremarkable. Labs: Laboratory Results - last 24 hr 08/06/21 08/06/21 08/06/21 13:05 13:05 13:45 WBC 9.9 RBC 4.90 Hgb 14.7 Hct 44.5 MCV 90.8 MCH 30.0 MCHC 33.0 RDW Std Deviation 41.9 RDW Coeff of Karolyn 12.6 Plt Count 209 MPV 9.6 Neut % (Auto) Not Reportable Absolute Neuts (auto) 6.5 Absolute Lymphs (auto) 0.68 L Total Counted 100 Neutrophils % (Manual) 86 H Lymphocytes % (Manual) 9 L Monocytes % (Manual) 5 Nucleated RBC % 0 Platelet Estimate ADEQUATE RBC Morphology NORM C+C Sodium Cancelled 140 Potassium Cancelled 4.2 Chloride Cancelled 110 H Carbon Dioxide Cancelled 26.0 Anion Gap Cancelled 4 L BUN Cancelled 15 Creatinine Cancelled 0.64 Estim Creat Clear Calc Cancelled 92.94 Est GFR (MDRD) Af Amer Cancelled 128 Est GFR (MDRD) Non-Af Cancelled 106 BUN/Creatinine Ratio Cancelled 23.4 H Glucose Cancelled 100 Calcium Cancelled 8.5 Troponin I High Sens Cancelled 6 Radiography Chest X-Ray - ED: Read by ED Physician, Heart, Lungs, Mediastinum, Bony Structures, No Acute Disease and Chronic Changes Diagnostic Testing: Clinical Impression(s) from Imaging Studies Chest X-Ray 08/06/21 13:25 IMPRESSION: No acute abnormality is seen. Electronically Signed: Yandel Nina MD at 14:01 EDT , Chest x-ray shows no acute process. Chronic changes. Normal cardiac silhouette mediastinum. Interpreted by myself. Single view portable. Rhythm Strip Rhythm Strip: Sinus Rhythm Rate: 86 Ectopy: None EKG Initial EKG: Attestation: I personally reviewed and interpreted this EKG as follows: Interpretation: Sinus Rhythm and No Acute Injury Pattern Comments: Normal sinus rhythm rate of 86. She does have some ST-T wave abnormalities in leads V4 5 and 6. There is no old EKG available for comparison. Discharge Plan Triage Chief Complaint: Chest Pain ED Provider: Stef Roman Dx/Rx/DC Orders Clinical Impression: Chest pain of uncertain etiology Instructions: ED Chest Pain, Uncertain Cause Prescriptions: No Action atorvastatin 40 MG tablet 40 mg PO DAILY RF: 0 buprenorphine-naloxone [Suboxone] 1 EACH film 4 ea PO BID RF: 0 mirtazapine 30 MG tablet 22.5 mg PO QHS RF: 0 omeprazole 40 mg Capsule,Delayed Release(Dr/Ec) 40 mg PO DAILY RF: 0 ranitidine HCl [Zantac] 150 mg Capsule 150 mg PO DAILY RF: 0 Primary Care Provider: Ifeanyi Vasquez Referrals: Jeff Wilburn MD [STAFF PHYSICIAN] - 1 Day Ifeanyi Vasquez MD [Primary Care Provider] - Activity Restrictions/Additional Instructions: Stop smoking. Call the television servicer office tomorrow. They will try to set you up for a stress test as soon as possible. I could not get that done today because your insurance needs preauthorization. Return if feeling worse. Disposition Disposition: Home, Self Care
[2021-08-06 13:09] LABS: Hematocrit 44.5 % (37-47); Hemoglobin 14.7 g/dL (12.0-15.0); Mean Corpuscular Volume 90.8 fL (81-99); Mean Platelet Vol. 9.6 fl (6.2-12.0); NRBC Flagged by Analyzer 0 % (0-5); Platelet Count 209 K/mm3 (150-450); RBC Distribution Width CV 12.6 % (11.6-14.6); RBC Distribution Width SD 41.9 fl (35.1-43.9); White Blood Count 9.9 K/mm3 (4.4-11.0)
--- NOTE | 2021-08-06 13:25 | RAD_ITS ---
STUDY: X-RAY CHEST REASON FOR EXAM: Female, 46 years old. Chest pain TECHNIQUE: Single AP portable view of the chest. COMPARISON: Comparison is made with prior study dated 06/29/2021. FINDINGS: EKG electrodes are seen. Hyperinflation. Scattered calcified granulomas. The lungs are clear. There is no demonstrated pleural abnormality. Normal size heart. Normal mediastinum and melania. Normal visualized pulmonary arteries. Normal visualized aortic arch and descending thoracic aorta. Normal visualized thoracic spine. Normal visualized ribs, clavicles, and shoulders. There is no demonstrated abnormality of the visualized soft tissue structures of the upper abdomen. RAD/Chest 1 View (Portable) IMPRESSION: No acute abnormality is seen. Electronically Signed: Yandel Nina MD at 14:01 EDT ,
[2021-08-06 13:47] LABS: Lymphocyte 9 % (19-41); Monocyte 5 % (0-10); Neutrophil-Segmented 86 % (47-70); Total Cells Counted 100 (MANUAL DIFF)
[2021-08-06 13:50] LABS: Absolute Lymphocyte Count 0.68 X10^3/uL (0.83-4.51); Absolute Neutrophil Count 6.5 X10^3/uL (2.0-7.7)
[2021-08-06 13:51] LABS: Platelet Estimate ADEQUATE (ADEQ); Red Cell Morphology NORM C+C NORMAL (NORM C&C)
[2021-08-06 14:11] LABS: Anion Gap 4 (5-15); BUN 15 mg/dL (7-18); BUN/Creat Ratio 23.4 RATIO (10-20); Calcium,Total 8.5 mg/dL (8.5-10.1); Chloride 110 mmol/L (98-107); Creatinine, Serum 0.64 mg/dL (0.55-1.02); EST Glomerular Filtration Rate 106 mL/min (>60); Est Glom Filt Rate - Afr Amer 128 mL/min (>60); Estimated Creatinine Clearance 92.94 ml/min; Glucose 100 mg/dL (74-106); Potassium 4.2 mmol/L (3.5-5.1); Sodium Level 140 mmol/L (136-145); Troponin-I HS 6 pg/mL (3.0-54.0)
[2021-08-06 15:28] VITALS: BP 116/78; PULSE 66; RESP 16; O2SAT 96
[2021-08-06 15:42] VITALS: RESP 16
== END 2021-08-06 16:54 | disposition left against medical advice (07) ==
PROVIDERS: Emergency Provider Emergency Medicine; PCP Internal Medicine; Visit Provider Emergency Medicine
DX: R07.9 Chest pain, unspecified (principal); R06.02 Shortness of breath; E78.00 Pure hypercholesterolemia, unspecified; F17.210 Nicotine dependence, cigarettes, uncomplicated
CPT/HCPCS: 71045; 80048; 84484; 85025; 93005; 99285; A4216

== ENCOUNTER → 2021-09-22 | Outpatient (CLI) | payer MEDICAID, SELFPAY ==
--- NOTE | 2021-09-22 07:03 | ECHOD_ITS ---
Reason For Study: CHEST PAIN Procedure This was a 2D Doppler, Color Flow transthoracic echocardiogram. The exam was of adequate technical quality. Exam performed in department. Left Ventricle Normal LV size. Left ventricular systolic function is normal. The estimated ejection fraction is 60 %. No evidence for diastolic dysfunction. No regional wall motion abnormalities noted. Right Ventricle Normal RV size. Normal systolic function. Atria Normal left atrium. Normal right atrium. No doppler evidence for ASD. Mitral Valve There is no mitral annular calcification. Normal mitral valve. Mild (1+) mitral valve insufficiency. Tricuspid Valve Normal tricuspid valve. Trivial tricuspid valve insufficiency. Right ventricular systolic pressure estimated to be 27 mmHg. Aortic Valve Trisinus/trileaflet aortic valve. Normal aortic valve. Pulmonic Valve The pulmonic valve is not well visualized. Great Vessels Normal sized aortic root. Pericardium/Pleural No pericardial effusion. MMode/2D Measurements & Calculations LVIDd: 4.0 cm IVSd: 0.72 cm Ao root diam: 3.1 cm LVIDs: 2.7 cm LVPWd: 0.74 cm RVDd: 3.0 cm FS: 33.4 % LAV(MOD-bp): 28.1 ml LVAd ap4: 25.7 cm2 SV(MOD-sp4): 47.9 ml LAV(MOD-bp) Indexed: 17.8 ml/m2 LVLd ap4: 7.2 cm LAV(MOD-sp2): 26.7 ml EDV(MOD-sp4): 74.1 ml LAV(MOD-sp4): 29.3 ml EDV(sp4-el): 77.7 ml LVAs ap4: 14.1 cm2 LVLs ap4: 6.2 cm ESV(MOD-sp4): 26.2 ml ESV(sp4-el): 27.1 ml EF(MOD-sp4): 64.6 % EF(sp4-el): 65.1 % SV(sp4-el): 50.6 ml LA A4 area: 13.3 cm2 LA dimension(2D): 2.8 cm RA A4 area: 11.5 cm2 Time Measurements MV dec time: 0.21 sec Doppler Measurements & Calculations MV E max markus: 72.9 cm/sec Lat Peak E' Markus: 9.4 cm/sec Med Peak E' Markus: 9.6 cm/sec MV A max markus: 70.2 cm/sec E/E' lat: 7.7 E/E' med: 7.6 MV E/A: 1.0 Ao V2 max: 107.5 cm/sec LV V1 max: 90.2 cm/sec PA V2 max: 80.4 cm/sec Ao max P.6 mmHg LV V1 max P.3 mmHg TR max markus: 247.0 cm/sec TR max P.4 mmHg ECHO/Echo Complete Interpretation Summary Left ventricular systolic function is normal. The estimated ejection fraction is 60 %. Mild (1+) mitral valve insufficiency. Trivial tricuspid valve insufficiency. Right ventricular systolic pressure estimated to be 27 mmHg. No evidence for diastolic dysfunction. Ordering Physician: Chris Booker Referring Physician: BUDDY BARRAGAN Performed By: Mary Benavides RDCS
--- NOTE | 2021-09-22 19:38 | STRESSREP ---
Stress Test Report Date: 09-23-2019 Procedure: Exercise tolerance test/imaging study Indications: Chest pain Consent: Per the patient Procedure: The patient exercised on a Mike protocol for 7 minutes and 45 completing Stage II and 1 minute and 45 seconds of Stage III achieving a peak heart rate of 151 bpm (86% predicted maximal heart rate) with a peak blood pressure 126/82 mmHg and a peak MET capacity of 10 METs. The baseline ECG demonstrated normal sinus rhythm. The peak exercise ECG demonstrated somatic/motion artifact with no obvious ECG changes. There were no cardiac dysrhythmias pretest, during exercise, or recovery. The functional capacity was considered good. There was no complaint of chest discomfort during exercise or recovery. The examination was discontinued secondary to chest/shoulder discomfort; lightheadedness; weakness. Impression: 1. Technically adequate (percent predicted maximal heart rate greater than 85%) exercise tolerance test 2. Peak exercise ECG with somatic/motion artifact with no obvious ECG changes 3. There were no cardiac dysrhythmias pretest, during exercise, or recovery 4. Nuclear images pending Myocardial perfusion imaging study: Technique: The patient was injected with 11.8 mCi of technetium 99m Cardiolite and subsequently rest SPECT Cardiolite nuclear imaging was obtained in the horizontal long, vertical long, and short axis views. The patient exercised on a Mike protocol for 7 minutes and 45 completing Stage II and 1 minute and 45 seconds of Stage III achieving a peak heart rate of 151 bpm (86% predicted maximal heart rate) with a peak blood pressure 126/82 mmHg and a peak MET capacity of 10 METs. The patient was injected with 34.1 mCi of technetium 99m Cardiolite and subsequently stress SPECT Cardiolite nuclear imaging was obtained in the horizontal long, vertical long, and short axis views. A gated Cardiolite study at peak stress was obtained. Interpretation: Rest and stress SPECT Cardiolite nuclear imaging status post realignment, normalization, and attenuation correction, demonstrates the appearance of relative uniform tracer uptake and myocardial perfusion appearing within normal limits. There is end systolic thickening and brightening. The gated Cardiolite study demonstrates myocardial thickening and inward wall motion. The reported LVEF is 74%. Impression: 1. Rest and stress SPECT Cardiolite nuclear imaging demonstrate relative uniform tracer uptake and myocardial perfusion appearing within normal limits. 2. The gated Cardiolite study reports an LVEF of 74%. This note was generated with [employer] ([employer]) software. It may contain incorrect words, spelling, and punctuation that were not noted in checking the note before signing.
== END | disposition home or self-care (01) ==
LOC: CVS 07:02
PROVIDERS: PCP Internal Medicine; Visit Provider Internal Medicine Cardiovascular Disease
DX: R55 Syncope and collapse (principal); Z82.49 Family history of ischemic heart disease and other diseases of the circulatory system; E78.2 Mixed hyperlipidemia; R07.9 Chest pain, unspecified
CPT/HCPCS: 78452; 93017; 93225; 93226; 93306; A9500; A4216

== ENCOUNTER 2024-02-01 12:26 | Emergency (ER) | payer OTHER, SELFPAY ==
[2024-02-01 12:27] VITALS: BP 149/80; PULSE 95; RESP 16; TEMP 36.4; O2SAT 100; BMI 21.4
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
--- NOTE | 2024-02-01 12:48 | US_ITS ---
STUDY: ABDOMINAL ULTRASOUND - RIGHT UPPER QUADRANT REASON FOR VISIT: Female, 48 years old . Abdominal pain. TECHNIQUE: Ultrasound evaluation of the right upper quadrant was performed with real-time and static olsen-scale imaging. TECHNICAL QUALITY: Adequate. COMPARISON: None. FINDINGS: Liver: The liver measures 13.7 cm. There is normal echogenicity of the liver. The bile ducts are within normal limits. There is hepatic color flow. The direction of portal flow is hepatopetal. There is no demonstrated mass lesion. Gallbladder: Normal distended gallbladder. The gallbladder wall measures 1.4 mm. There is a negative sonographic Cordon''s sign. There is no pericholecystic fluid. There are no gallstones. Common Bile Duct (C.B.D.): The common bile duct measures 4 mm. Pancreas: Normal size of the head, body and tail of the pancreas. There is normal echogenicity of the pancreas. There is no demonstrated pancreatic mass or cyst. Right Kidney: Normal size of the right kidney. The right kidney measures 10.9 cm x 4.6 cm x 4.5 cm. Normal renal cortex. The right cortex measures 1.0 cm. There is no demonstrated renal mass or cyst. There is no right hydronephrosis. US/Gallbladder IMPRESSION: Normal right upper quadrant ultrasound examination. Electronically Signed: Yandel Nina MD at 15:18 EDT ,
[2024-02-01 13:05] LABS: Mucous, Urine 0 SEEN /hpf (<or=2+); Red Blood Cells-Urine 0 SEEN /hpf (0-5)
[2024-02-01 13:06] LABS: Color, Urine Yellow (Yellow); Glucose, Dipstick Normal (Normal); Ketone-Dipstick Negative (Negative); Leukocyte Esterase-Dipstick Negative /ul (Negative); Nitrite-Dipstick Negative (Negative); Occult Blood-Urine Negative /ul (Negative); Protein-Dipstick Negative (Negative); Specific Gravity, Urine 1.005 (1.002-1.030); Urine Bilirubin Dipstick Negative (Negative); Urine Clarity Sl. Cloudy (Clear); Urine Urobilinogen Normal (Normal)
[2024-02-01 13:11] LABS: Bacteria 2+ /hpf (None Seen); Squamous Epithelial Cells - UA 0-5 SEEN /hpf (5-10); White Blood Cells 0-5 SEEN /hpf (0-5)
[2024-02-01 14:27] VITALS: BP 144/79; PULSE 80; RESP 16
[2024-02-01] MEDS: 0.9% Normal Saline (1000mL) 1,000 ML 999 ML IV (14:29)
[2024-02-01 14:38] LABS: Absolute Neutrophil Count 4.5 X10^3/uL (2.0-7.7); Basophil# 0.01 X10^3/uL; Basophil% 0.1 % (0-1); Eosinophil# 0.17 X10^3/uL; Eosinophils% 2.5 % (0-5); Hematocrit 36.4 % (37-47); Hemoglobin 11.9 g/dL (12.0-15.0); Lymphocyte % 23.4 % (19-41); Mean Corp Hgb Conc 32.7 g/dL (32-36); Mean Corpuscular Hgb 29.6 pg (27.0-32.0); Mean Corpuscular Volume 90.5 fL (81-99); Mean Platelet Vol. 10.3 fl (6.2-12.0); Monocyte# 0.59 X10^3/uL; Monocyte% 8.6 % (0-10); NRBC Flagged by Analyzer 0 % (0-5); Neutrophil # 4.45 X10^3/uL (2.7-7.7); Neutrophil % 65.1 % (47-70); Platelet Count 180 K/mm3 (150-450); RBC Distribution Width SD 39.9 fl (35.1-43.9); Red Blood Count 4.02 M/mm3 (4.2-5.4); White Blood Count 6.8 K/mm3 (4.4-11.0)
[2024-02-01 15:00] LABS: ALB/GLOB Ratio 1.2 RATIO (0.9-2.4); AST(SGOT) 10 U/L (15-37); Alanine Aminotransfer ALT/SGPT 49 U/L (13-56); Albumin, Serum 3.8 g/dL (3.2-5.0); Alkaline Phosphatase 52 U/L (45-117); Anion Gap 4 (5-15); BUN 15 mg/dL (7-18); BUN/Creat Ratio 20.1 RATIO (10-20); Chloride 109 mmol/L (98-107); Creatinine, Serum 0.75 mg/dL (0.55-1.02); EST Glomerular Filtration Rate 88 mL/min (>60); Est Glom Filt Rate - Afr Amer 106 mL/min (>60); Estimated Creatinine Clearance 79.21 ml/min; Globulin 3.2 g/dL (2.2-4.2); Glucose 97 mg/dL (74-106); Lipase 20 U/L (13-75); Potassium 3.8 mmol/L (3.5-5.1); Sodium Level 140 mmol/L (136-145); Troponin-I HS 4 pg/mL (3.0-54.0)
[2024-02-01 16:00] VITALS: BP 131/68; PULSE 58; RESP 16; O2SAT 99
--- NOTE | 2024-02-01 16:10 | CT_ITS ---
STUDY: CT ABDOMEN AND PELVIS WITH CONTRAST REASON FOR EXAM: Female, 48 years old. abd pain RADIATION DOSAGE (If Supplied By Facility): CTDIvol = ( 7.62 ) mGy, DLP = ( 703.56 ) mGycm TECHNIQUE: Transaxial images were obtained from the dome of the diaphragm to the symphysis pubis without oral contrast. IV 100mL Isovue-370 was administered. Sagittal and coronal images were reconstructed. Individualized dose optimization techniques were used for this CT. COMPARISON: None. FINDINGS: The visualized lung bases are unremarkable. The visualized portions of the heart are within normal limits. Normal liver. Normal gallbladder and extrahepatic biliary system. Normal spleen. Normal pancreas. Normal bilateral adrenal glands. Normal right kidney. Normal left kidney. Normal visualized stomach. Normal small intestine. Fecal retention in the colon. The appendix is not visualized. Normal abdominal aorta. Normal inferior vena cava. Normal retroperitoneum. Normal urinary bladder. Up to 1 cm cystic nodules in the right ovary. Normal abdominal wall. Normal osseous structures. CT/Abdomen/Pelvis W IV Cont ONLY IMPRESSION: Diffuse colonic fecal retention. Right ovarian small cystic nodules. Electronically Signed: Richard Grande DO at 17:23 EDT Reading Location ID and State: [facility] / [place] Tel [phone], Service support ,
--- NOTE | 2024-02-01 16:12 | CT_ITS ---
STUDY: CTA CHEST REASON FOR EXAM: Female, 48 years old. sob pain RADIATION DOSAGE (If Supplied By Facility): CTDIvol = ( 7.62 ) mGy, DLP = ( 703.56 ) mGycm TECHNIQUE: The examination was performed with the intravenous administration of IV 100mL Isovue-370. Post-processing of the angiographic images was performed, with multiplanar reformation and 3D reconstruction. The protocol utilizes one or more of the following dose reduction techniques: automated exposure control, adjustment of mA and/or kV according to patient size,and/or use of iterative reconstruction technique. COMPARISON: FINDINGS: Normal enhancement of the main pulmonary artery and right and left pulmonary arteries. Normal enhancement of the bilateral peripheral pulmonary arteries. There is no demonstrated pulmonary embolism. Normal thoracic aorta and visualized great vessels. There is no demonstrated aortic dissection. Normal heart and pericardium. Normal mediastinum. Normal hilar regions. Normal visualized trachea and bronchi. The lungs are well expanded. Normal pulmonary parenchyma. Normal pleura. Normal chest wall structures. Normal osseous structures. Normal visualized upper abdomen. CT/CTA Chest W/WO Contrast IMPRESSION: Normal CTA chest examination, without a demonstrated pulmonary embolism or arterial dissection. Electronically Signed: Richard Grande DO at 17:13 EDT ,
[2024-02-01] MEDS: Metoclopramide 10 MG/2 ML Vial 5 MG IV (16:21)
[2024-02-01 17:58] VITALS: BP 110/71; PULSE 62; RESP 16; TEMP 36.6; O2SAT 98
== END 2024-02-01 17:59 | disposition home or self-care (01) ==
PROVIDERS: Emergency Provider Emergency Medicine; PCP Internal Medicine; Visit Provider Emergency Medicine
DX: R10.819 Abdominal tenderness, unspecified site (principal); K59.00 Constipation, unspecified; Z87.891 Personal history of nicotine dependence; E78.2 Mixed hyperlipidemia; B19.20 Unspecified viral hepatitis C without hepatic coma; Z79.899 Other long term (current) drug therapy
CPT/HCPCS: 71275; 74177; 76705; 80053; 81001; 83690; 84484; 85025; 93005; 96361; 96374; 99282; J7030; Q9967; A4216